=== PATIENT | male | born 1980 | race African-American/Black ===

== ENCOUNTER 2019-01-12 19:14 | Emergency (ER) | payer OTHER, BC ==
[2019-01-12 19:30] VITALS: BP 147/81; PULSE 91; RESP 16; TEMP 98.4
[2019-01-12] MEDS ORDERED: DIPH,PERTUS(ACELL)TETVAC-LF 0.5 ML VIAL IM ONE (19:41)
--- NOTE | 2019-01-12 19:48 | XR ---
EXAMINATION TYPE: XR finger RT DATE OF EXAM: 01/12/2019 COMPARISON: NONE HISTORY: Laceration crushing injury with pain. TECHNIQUE: 3 views right fifth finger are acquired. FINDINGS: Along palmar radial surface distal aspect fifth middle phalanx there is soft tissue irregul arity consistent with laceration. No suspicious metallic soft tissue foreign body is present. No acut e fracture or dislocation is seen. Joint spaces are preserved. IMPRESSION: As above.
[2019-01-12] MEDS ORDERED: TOPICAL SKIN ADHESIVE 1 EACH AMP TOPICAL ONE (19:55)
--- NOTE | 2019-01-12 20:00 | ED ---
General Adult HPI - General Chief complaint: Extremity Injury, Upper Stated complaint: Rt Hand Injury Time Seen by Provider: 01/12/19 19:28 Source: patient, RN notes reviewed Mode of arrival: ambulatory Limitations: no limitations - History of Present Illness Initial comments: 39-year-old male presents to the emergency department for chief light of right pinky injury. Patient states he dropped a sheet of steel on his finger. States he was wearing gloves at the time. Denies any difficulty moving the finger. Denies any decreased sensation. Denies any other pain in the right hand or any other injuries. Patient is not up-to-date on tetanus.Patient has no other complaints at this time including shortness of breath, chest pain, abdominal pain, nausea or vomiting, headache, or visual changes. - Related Data Allergies Allergy/AdvReac Type Severity Reaction Status Date / Time No Known Allergies Allergy Verified 01/12/19 19:30 Review of Systems ROS Statement: Those systems with pertinent positive or pertinent negative responses have been documented in the HPI. ROS Other: All systems not noted in ROS Statement are negative. Past Medical History Past Medical History: No Reported History History of Any Multi-Drug Resistant Organisms: None Reported Past Surgical History: No Surgical Hx Reported Past Psychological History: No Psychological Hx Reported Smoking Status: Current every day smoker Past Alcohol Use History: None Reported Past Drug Use History: None Reported General Exam Limitations: no limitations General appearance: alert, in no apparent distress Head exam: Present: atraumatic, normocephalic, normal inspection ENT exam: Present: normal exam, mucous membranes moist Neck exam: Present: normal inspection, full ROM. Absent: tenderness, meningismus, lymphadenopathy Respiratory exam: Present: normal lung sounds bilaterally. Absent: respiratory distress, wheezes, rales, rhonchi, stridor Cardiovascular Exam: Present: regular rate, normal rhythm, normal heart sounds. Absent: systolic murmur, diastolic murmur, rubs, gallop, clicks Extremities exam: Present: full ROM (Full range motion of the right fifth finger including the MCP, PIP, and DIP joints), tenderness (Tenderness along the laceration site), normal capillary refill (Capillary refill less than 2 seconds, radial pulse 2+), other (Sensation intact in the right finger. There is a 1 cm skin tear of superficial skin noted on the palmar aspect of the DIP joint. However skin is so thin it cannot be sutured. No deep structure injuries. No subungual hematoma) Course Vital Signs 01/12/19 19:26 Temperature 98.4 F Pulse Rate 91 Respiratory 16 Rate Blood Pressure 147/81 O2 Sat by Pulse 97 Oximetry Procedures - Laceration Laceration #1 Consent Obtained: verbal consent Indication: laceration Site: hand Size (cm): 1 Description: linear Depth: simple, single layer Size of Sutures: other (exofin) Medical Decision Making - Medical Decision Making 39-year-old male presents to the emergency department for a chief complaint of right fifth finger pain. Patient dropped a sheet of steel on this. Patient is not up-to-date on tetanus. Patient has a small skin tear noted to the palmar aspect of the right fifth DIP joint. X-ray negative for fracture. Given that this skin tear is very superficial it will not be able to be sutured. Therefore it was glued with exofin. Patient was instructed not to bend finger to allow clue to be maintained. Patient was given a splint for this. He will follow up with primary care in 1-2 days and return if he has any worsening symptoms. Disposition Clinical Impression: Skin tear, Finger injury Disposition: HOME SELF-CARE Condition: Good Instructions (If sedation given, give patient instructions): Laceration (ED), Skin Adhesive Care (ED) Additional Instructions: Please keep the area clean. Do not scrub that clue. Monitor for spreading or streaking redness return if this occurs. Follow-up with primary care in 1-2 days. Return if you have any other worsening symptoms. Is patient prescribed a controlled substance at d/c from ED?: No Referrals: Gerri Gutierrez MD [REFERRING] - 1-2 days Time of Disposition: 19:59
== END 2019-01-12 20:25 | disposition home or self-care (01) ==
LOC: EC 19:14
DX: S61.216A Laceration without foreign body of right little finger without damage to nail, initial encounter (principal); F17.200 Nicotine dependence, unspecified, uncomplicated; Z23 Encounter for immunization; W23.0XXA Caught, crushed, jammed, or pinched between moving objects, initial encounter; Y92.89 Other specified places as the place of occurrence of the external cause; Y99.0 Civilian activity done for income or pay
CPT/HCPCS: 12001; 90471; 90715; 99283

== ENCOUNTER 2020-07-17 14:51 | Emergency (ER) | payer BC, OTHER ==
[2020-07-17 15:03] VITALS: BP 129/75; PULSE 91; RESP 18; TEMP 98.8
--- NOTE | 2020-07-17 15:29 | ED ---
Male Urogenital HPI - General Chief complaint: Urogenital Stated complaint: laceration infection Time Seen by Provider: 07/17/20 15:04 Source: patient Mode of arrival: ambulatory Limitations: no limitations - History of Present Illness Initial comments: Patient is 40-year-old male presenting to emergency Department with a chief complaint of a skin infection. Patient states several days ago he was closing his his upper on the pants and caught his penis on it. Patient states initially was healing well and is Performed. However, over the last 2 days he has noticed redness and some yellow discharge from the region. States now he has some pain that is shooting distally to the glans penis. Denies any dysuria. Denies any urinary retention. Denies any night sweats or chills. Doesn't testicular pain or tenderness. Not diabetic. - Related Data Previous Rx's Medication Instructions Recorded Cephalexin [Keflex] 500 mg PO Q6HR #40 cap 07/17/20 Sulfamethox-Tmp 800-160Mg [Bactrim 1 each PO Q12HR #20 tab 07/17/20 Ds] Allergies Allergy/AdvReac Type Severity Reaction Status Date / Time No Known Allergies Allergy Verified 07/17/20 15:03 Review of Systems ROS Statement: Those systems with pertinent positive or pertinent negative responses have been documented in the HPI. ROS Other: All systems not noted in ROS Statement are negative. Past Medical History Past Medical History: No Reported History History of Any Multi-Drug Resistant Organisms: None Reported Past Surgical History: No Surgical Hx Reported Past Psychological History: No Psychological Hx Reported Smoking Status: Current some day smoker Past Alcohol Use History: None Reported Past Drug Use History: Marijuana General Exam Limitations: no limitations General appearance: alert, in no apparent distress, obese Head exam: Present: atraumatic, normocephalic, normal inspection Eye exam: Present: normal appearance, PERRL, EOMI Pupils: Present: normal accommodation ENT exam: Present: normal exam, normal oropharynx, mucous membranes moist, TM's normal bilaterally, normal external ear exam Neck exam: Present: normal inspection, full ROM. Absent: tenderness Respiratory exam: Present: normal lung sounds bilaterally. Absent: respiratory distress, wheezes, rales Cardiovascular Exam: Present: regular rate, normal rhythm, normal heart sounds GI/Abdominal exam: Present: soft. Absent: distended, tenderness, guarding, rebound exam: Present: circumcision. Absent: normal inspection (Skin infection with some yellow discharge noted at the base of the glans penis near the foreskin. Mild surrounding erythema. No signs of palpable abscess.), testicular tenderness, urethral discharge, scrotal swelling, vertical testicular lie Extremities exam: Present: normal inspection, full ROM, normal capillary refill. Absent: tenderness Back exam: Present: normal inspection, full ROM. Absent: tenderness, CVA tenderness (R) Neurological exam: Present: alert, oriented X3, normal gait Psychiatric exam: Present: normal affect, normal mood Skin exam: Present: warm, dry, intact, normal color Course Vital Signs 07/17/20 15:01 Temperature 98.8 F Pulse Rate 91 Respiratory 18 Rate Blood Pressure 129/75 O2 Sat by Pulse 100 Oximetry Medical Decision Making - Medical Decision Making 40-year-old male presenting to emergency Department with chief complaint of skin infection. On physical examination, patient does have an infection noted at the base of the penis near the foreskin. There appears to be some yellow discharge with mild surrounding erythema. No testicular symptoms or signs. Patient to be started on Bactrim and Keflex. Return parameters discussed with patient was understanding and agreeable. Case discussed with physician. Disposition Clinical Impression: Skin infection, Penis injury Disposition: HOME SELF-CARE Condition: Stable Instructions (If sedation given, give patient instructions): Abscess (ED) Additional Instructions: Take prescribed medication as directed. Follow with her primary care physician. Return to emergency department if symptoms worsen. Apply warm compress on the penis. Prescriptions: Sulfamethox-Tmp 800-160Mg [Bactrim Ds] 1 each PO Q12HR #20 tab Cephalexin [Keflex] 500 mg PO Q6HR #40 cap Is patient prescribed a controlled substance at d/c from ED?: No Referrals: Nonstaff,Physician [Primary Care Provider] - 1-2 days Time of Disposition: 15:38
[2020-07-17] MEDS ORDERED: SULFAMETHOX-TMP 800-160MG 1 EACH TAB PO STA (15:36)
[2020-07-17] MEDS ORDERED: CEPHALEXIN 500 MG CAP PO STA (15:36)
[2020-07-17] MEDS ORDERED: ACET/COD 300 MG/30 MG STARTER PACK 6 TAB BTL PO STA (15:46)
== END 2020-07-17 15:50 | disposition home or self-care (01) ==
LOC: EC 14:51
DX: S39.848A Other specified injuries of external genitals, initial encounter (principal); L08.9 Local infection of the skin and subcutaneous tissue, unspecified; F17.200 Nicotine dependence, unspecified, uncomplicated; X58.XXXA Exposure to other specified factors, initial encounter; Y93.89 Activity, other specified
CPT/HCPCS: 99283

== ENCOUNTER 2020-09-19 17:19 | Emergency (ER) | payer OTHER ==
[2020-09-19 17:28] VITALS: BP 132/79; PULSE 104; RESP 18; TEMP 98.6
--- NOTE | 2020-09-19 19:06 | ED ---
Recheck HPI - General Chief Complaint: Recheck/Abnormal Lab/Rx Stated Complaint: med refill Time Seen by Provider: 09/19/20 18:58 Source: patient Mode of arrival: ambulatory Limitations: no limitations - History of Present Illness Initial Comments: 40-year-old male patient presents to the emergency department today requesting refill of his medications. Patient states that he was recently admitted to the mental health unit and was given a 2 week refill of his medications. Patient states due to the holidays he was unable to make an appointment and follow-up with his primary care physician so he has not out of his medications. He is requesting a refill and does have an appointment in a week and a half. He denies any new symptoms or physical concerns at this time. States that he has a mild increase in his chronic pain due to being without his arthritis medication. Denies any fever or chills. Denies any nausea or vomiting or diarrhea. - Related Data Previous Rx's Medication Instructions Recorded Cephalexin [Keflex] 500 mg PO Q6HR #40 cap 07/17/20 Sulfamethox-Tmp 800-160Mg [Bactrim 1 each PO Q12HR #20 tab 07/17/20 Ds] Baclofen [Lioresal] 10 mg PO BID #28 tablet 09/19/20 DULoxetine HCL [Cymbalta] 90 mg PO DAILY #42 cap 09/19/20 Doxepin HCl [SINEquan] 100 mg PO HS #14 cap 09/19/20 Lidocaine 5% Patch [Lidoderm 5% 1 patch TOPICAL DAILY #30 patch 09/19/20 Patch] Meloxicam [Mobic] 15 mg PO DAILY #14 tab 09/19/20 Allergies Allergy/AdvReac Type Severity Reaction Status Date / Time No Known Allergies Allergy Verified 09/19/20 17:28 Review of Systems ROS Statement: Those systems with pertinent positive or pertinent negative responses have been documented in the HPI. ROS Other: All systems not noted in ROS Statement are negative. Past Medical History Past Medical History: No Reported History History of Any Multi-Drug Resistant Organisms: None Reported Past Surgical History: No Surgical Hx Reported Past Psychological History: Anxiety, Depression Smoking Status: Current some day smoker Past Alcohol Use History: None Reported Past Drug Use History: Marijuana General Exam Limitations: no limitations General appearance: alert, in no apparent distress, other (This is a well- developed, well-nourished adult male patient in no acute distress. Vital signs upon presentation are temperature 98.6F, pulse 104, respirations 18, blood pressure 132/79, pulse ox 100% on room air.) Respiratory exam: Present: normal lung sounds bilaterally. Absent: respiratory distress, wheezes, rales, rhonchi, stridor Cardiovascular Exam: Present: regular rate, normal rhythm, normal heart sounds. Absent: systolic murmur, diastolic murmur, rubs, gallop, clicks GI/Abdominal exam: Present: soft, normal bowel sounds. Absent: distended, tenderness, guarding, rebound, rigid Neurological exam: Present: alert, oriented X3, CN II-XII intact Psychiatric exam: Present: normal affect, normal mood Skin exam: Present: warm, dry, intact, normal color. Absent: rash Course Vital Signs 09/19/20 17:25 Temperature 98.6 F Pulse Rate 104 H Respiratory 18 Rate Blood Pressure 132/79 O2 Sat by Pulse 100 Oximetry Medical Decision Making - Medical Decision Making 40-year-old male patient presents to the emergency department today requesting refills of his home medications. He is out of his meds due to a recent admission to the mental health unit and being unable to follow-up with primary care physician through the holidays. Physical examination is unremarkable. Denies any concerning symptoms at this time. He will be given refills of all of his medications for 2 weeks. He does have an appointment in a week and a half. He'll be discharged to follow-up as directed. Return parameters were discussed in detail. They verbalize understanding and agree with this plan. Disposition Clinical Impression: Medication refill Disposition: HOME SELF-CARE Condition: Good Instructions (If sedation given, give patient instructions): Medicine Refill (ED) Additional Instructions: Follow up with your primary care physician as planned. Return to the emergency department for any new, worsening, or concerning symptoms. Prescriptions: DULoxetine HCL [Cymbalta] 90 mg PO DAILY #42 cap Lidocaine 5% Patch [Lidoderm 5% Patch] 1 patch TOPICAL DAILY #30 patch Baclofen [Lioresal] 10 mg PO BID #28 tablet Meloxicam [Mobic] 15 mg PO DAILY #14 tab Doxepin HCl [SINEquan] 100 mg PO HS #14 cap Is patient prescribed a controlled substance at d/c from ED?: No Referrals: Nonstaff,Physician [Primary Care Provider] - 1-2 days Time of Disposition: 19:06
== END 2020-09-19 19:13 | disposition home or self-care (01) ==
LOC: EC 17:19
DX: Z76.0 Encounter for issue of repeat prescription (principal); F17.200 Nicotine dependence, unspecified, uncomplicated
CPT/HCPCS: 99281